=== PATIENT | female | born 1975 | race Caucasian/White ===

== ENCOUNTER 2024-05-22 23:13 | Emergency (ER) | payer BC ==
[~2024-05-22] VITALS: Ht 157.5 cm; Wt 65.8 kg
[2024-05-22] MEDS ORDERED: XANAX (23:35)
[2024-05-22] MEDS ORDERED: LEXAPRO (23:35)
[2024-05-22] MEDS ORDERED: WELBUTRIN (23:35)
[2024-05-23] MEDS: LIDOCAINE HCL 1% 20 ML VIAL TP ONE (00:04)
[2024-05-23] MEDS ORDERED: LIDOCAINE HCL 2% 20 ML VIAL ONE (00:19)
[2024-05-23] MEDS ORDERED: LIDOCAINE HCL 1% 20 ML VIAL ONE (00:22)
[2024-05-23] MEDS ORDERED: NEOMY/BACITRA/POLYMYXIN B OINT UD PACKET TP ONE (00:35)
[2024-05-23] MEDS: NEOMY/BACITRA/POLYMYXIN B OINT UD PACKET TP ONE (00:36)
[2024-05-23 00:51] VITALS: BP 141/87; O2SAT 98
== END 2024-05-23 00:51 | disposition home or self-care (01) ==
LOC: ER 23:25
DX: S01.511A Laceration without foreign body of lip, initial encounter (principal); S01.81XA Laceration without foreign body of other part of head, initial encounter; S09.8XXA Other specified injuries of head, initial encounter; R11.10 Vomiting, unspecified; F41.9 Anxiety disorder, unspecified; R55 Syncope and collapse; W54.1XXA Struck by dog, initial encounter; Y93.89 Activity, other specified; Y92.89 Other specified places as the place of occurrence of the external cause; Y99.8 Other external cause status
CPT/HCPCS: 12011; 99283; J3490; A4606; A4663